=== PATIENT | male | born 1985 | race Caucasian/White ===

== ENCOUNTER → 2023-03-13 14:13 | Outpatient (CLI) | payer BC, SELFPAY ==
--- NOTE | ~2023-03-13 | XR_ITS ---
EXAM: [id number] DATE: 03/13/2023 14:34 HISTORY: medial Rt knee pain onset 1 yr ago s/p stepping in hole . COMPARISON: None available. FINDINGS: Normal mineralization. No fracture or dislocation. No lytic or blastic lesion. Mild degene rative changes. Deep sulcus sign. No erosion or periosteal change. Soft tissues within normal limits. IMPRESSION: Deep sulcus sign, which can accompany acute or chronic ACL tears, consider MR of the righ t knee for further evaluation. Reviewed, dictated and finalized at location K. IMPRESSION: Deep sulcus sign, which can accompany acute or chronic ACL tears, c onsider MR of the right knee for further evaluation.
== END ==
PROVIDERS: PCP Internal Medicine; Visit Provider Nurse Practitioner
DX: M25.561 Pain in right knee (principal)
CPT/HCPCS: 73560

== ENCOUNTER → 2023-03-14 14:16 | Outpatient (CLI) | payer BC, SELFPAY ==
--- NOTE | ~2023-03-14 | MR_ITS ---
EXAMINATION: MR knee RT wo con DATE: 03/14/2023 14:55 INDICATION: S83.519A - Sprain of anterior cruciate ligament. Right knee pain post tripped/fall one ye ar ago. Medial right knee pain is worsening TECHNIQUE: Magnetic resonance imaging (MRI) of the right knee was performed without intravenous contr ast. Sequences included axial PD-weighted FS FSE, coronal PD-weighted FSE and PD-weighted FS FSE, sag ittal PD-weighted FSE, and sagittal T2-weighted FS FSE. COMPARISON: X-ray knee 03/13/2023 FINDINGS: Medial compartment: Meniscus and cartilage intact. Lateral compartment: Meniscus and cartilage intact. Patellofemoral compartment: Irregular full-thickness medial and lateral facet cartilage signal abnormalities, without focal defec t. Retinacula intact. Ligaments and tendons: Thickening and abnormal signal involving ACL, primarily the anterior band. Mild proximal MCL thickeni ng as can be seen with chronic tear. LCL and PCL are intact. Remaining flexor and extensor tendons ar e intact. Fluid: Small volume joint fluid fluid. Osseous/other: Irregular marrow edema involving the medial tibial plateau, without cortical defect or corresponding linear T1 signal abnormality. IMPRESSION: Partial ACL tear. Bone marrow contusion involving the medial tibial plateau Reviewed, dictated and finalized at location K.
== END ==
PROVIDERS: PCP Nurse Practitioner; Visit Provider Nurse Practitioner
DX: S83.511A Sprain of anterior cruciate ligament of right knee, initial encounter (principal); X58.XXXA Exposure to other specified factors, initial encounter
CPT/HCPCS: 73721